=== PATIENT | male | born 1960 | race African-American/Black ===

== ENCOUNTER 2020-07-31 20:10 | Inpatient (IN) | payer OTHER ==
[2020-07-31 20:34] VITALS: BMI 25.0
--- NOTE | 2020-07-31 20:56 | BHS.RME ---
Substance Use & Tx History - Substance Use History Alcohol Substance amount: 3 pints Frequency of use: Daily Substance route: Oral Date of Last Use: 07/31/20 (Started at age 15.) Cocaine-Crack Substance amount: $60 Frequency of use: Daily Substance route: Smoking Date of Last Use: 07/31/20 (Started at age 31) Heroin Substance amount: 7-8 bags Frequency of use: Daily Substance route: Inhalation (ex: sniffing or snorting) Date of Last Use: 07/31/20 (Started at age 15) Methadone Substance amount: 15 - 20 mg Frequency of use: Less than 3 times per week Substance route: Oral Date of Last Use: 07/29/20 (Illicit use began at age 51) Xanax Substance amount: 1 stck Frequency of use: Less than 3 times per week Substance route: Oral Date of Last Use: 07/29/20 (Started using at age 58) Nicotine Substance amount: 10 Frequency of use: Daily Substance route: Inhalation (ex: sniffing or snorting) Date of Last Use: 07/31/20 (Started at age 13.) - Last Treatment Date of last treatment: 3 weeks ago Treatment type: Substance Use Disorder ([facility]) Where was last treatment: Detox Physical/Psych/Mental Status - Behavior General Behavior: Increased activity (restlessness, agitation) Eye Contact: Decreased - Cooperativeness Cooperativeness: Cooperative - Thinking Thought Processes: Goal Directed Thought content: Future oriented - Physical Health Problems Is patient presently having any pain?: Yes (Foot pain from caluses) Does patient presently have any injuries (include location): No Does patient currently have a fever: No COWS - Scale Resting Pulse: 0= [place] 80 or Below Sweatin=Flushed/Facial Moisture Restless Observation: 1= Difficult to Sit Still Pupil Size: 2= Moderately Dilated (Pupils = 4 mm) Bone or Joint Aches: 0= None Runny Nose/ Eye Tearin= Nasal Congestion GI Upset > 30mins: 0= None Tremor Observation: 2= Slight Tremor Visible Yawning Observation: 1= 1-2x During Session Anxiety or Irritability: 1=Feels Anxious/Irritable Goose Flesh Skin: 0=Smooth Skin COWS Score: 10 CIWA Nausea/Vomitin-No Nausea/No Vomiting Muscle Tremors: 3 Anxiety: 3 Agitation: 2 Paroxysmal Sweats: 3 (Increased facial moisture) Orientation: 0-Oriented Tacttile Disturbances: 0-None Auditory Disturbances: 0-None Visual Disturbances: 2-Mild Sensitivity Headache: 0-None Present CIWA-Ar Total Score: 13
--- NOTE | 2020-07-31 21:23 | HP ---
COWS - Scale Resting Pulse: 0= [place] 80 or Below Sweatin=Flushed/Facial Moisture Restless Observation: 1= Difficult to Sit Still Pupil Size: 2= Moderately Dilated (Pupils = 4 mm) Bone or Joint Aches: 0= None Runny Nose/ Eye Tearin= Nasal Congestion GI Upset > 30mins: 0= None Tremor Observation: 2= Slight Tremor Visible Yawning Observation: 1= 1-2x During Session Anxiety or Irritability: 1=Feels Anxious/Irritable Goose Flesh Skin: 0=Smooth Skin COWS Score: 10 CIWA Score Nausea/Vomitin-No Nausea/No Vomiting Muscle Tremors: 3 Anxiety: 3 Agitation: 2 Paroxysmal Sweats: 3 (Increased facial moisture) Orientation: 0-Oriented Tacttile Disturbances: 0-None Auditory Disturbances: 0-None Visual Disturbances: 2-Mild Sensitivity Headache: 0-None Present CIWA-Ar Total Score: 13 - Admission Criteria [facility]AS Guidelines: Admission for Medically Managed Detox: Requires at least one of the followin. CIWA greater than 12 2. Seizures within the past 24 hours 3. Delirium tremens within the past 24 hours 4. Hallucinations within the past 24 hours 5. Acute intervention needed for co occurring medical disorder 6. Acute intervention needed for co occurring psychiatric disorder 7. Severe withdrawal that cannot be handled at a lower level of care (continued vomiting, continued diarrhea, abnormal vital signs) requiring intravenous medication and/or fluids 8. Patient presents the following: CIWA greater than 12 Admission Criteria Met: Admission criteria met Admission ROS [facility] Chief Complaint: I'm here to get clean from drugs. Allergies/Adverse Reactions: Allergies Allergy/AdvReac Type Severity Reaction Status Date / Time No Known Allergies Allergy Verified 07/31/20 21:10 History of Present Illness: 60 you presents w/ alcohol and opioid withdrawal seeking detox. States was in [facility] about 4 weeks ago and relapsed immediately upon discharge. States I need to keep trying. PATIENT W/ HR: 42 ON AUSCULTATION AND ALSO ON EKG. DENIES CHEST PAIN/SOB. NO EDEMA. SEND TO ED FOR EVALUATION W/ COPY OF EKG (FOR CLEARANCE FOR ADMISSION.) REPORT GIVEN TO DR. TORRES IN [facility] ED. EMERY: 0.0 UTox: + TORY/FEN/MOP/MTD/BZO Substance Use History Alcohol Substance amount: 3 pints Frequency of use: Daily Substance route: Oral Date of Last Use: 07/31/20 (Started at age 15.) Cocaine-Crack Substance amount: $60 Frequency of use: Daily Substance route: Smoking Date of Last Use: 07/31/20 (Started at age 31) Heroin Substance amount: 7-8 bags Frequency of use: Daily Substance route: Inhalation(ex: sniffing or snorting) Date of Last Use: 07/31/20 (Started at age 15) Methadone (illicit) Substance amount: 20 mg Frequency of use: Less than 3 times per week Substance route: Oral Date of Last Use: 07/29/20 (Illicit use began at age 51) XanaX Substance amount: 1 stick Frequency of use: Less than 3 times per week Substance route: Oral Date of Last Use: 07/29/20 (Started using at age 58) Nicotine Substance amount: 10 Frequency of use: Daily Substance route: Inhalation (ex: sniffing or snorting) Date of Last Use: 07/31/20 (Started at age 13.) PMHx: Slow heart rate, sores on feet MHHx: Bipolar/depression. States on medications. Denies thoughts of harm to self or others SHx: Homeless. Patient Name: Mendez Pickering Date: 1960 Address: [address] [place] [address] Sex: Male Rx Written Rx Dispensed Drug Quantity Days Supply Prescriber Name Payment Method Dispenser 01/21/2020 01/21/2020 buprenorphine-naloxone 4-1 mg sl film 60 30 Mashajean mariekh, Joannad Medicaid [facility] Exam Limitations: No Limitations - Ebola screening Have you traveled outside of the country in the last 21 days: No Have you had contact with anyone from an Ebola affected area: No Have you been sick,other than usual withdrawal symptoms: No Do you have a fever: No - Review of Systems Constitutional: Chills EENT: reports: Blurred Vision, Nose Congestion Respiratory: reports: No Symptoms reported Cardiac: reports: Irregular Heart Rate (Hx slow heart beat) GI: reports: No Symptoms Reported : reports: No Symptoms Reported Musculoskeletal: reports: No Symptoms Reported Integumentary: reports: Lesions (bottom both feet sores, calluses) Neuro: reports: Tremors Endocrine: reports: Increased Thirst Hematology: reports: No Symptoms Reported Psychiatric: reports: Mood/Affect Appropiate, Orientated x3, Agitated, Anxious, Depressed (Denies S/) Patient History - PPD History Previous Implant?: Yes Documented Results: Negative w/o proof Implanted On Prior [facility] Admission?: No PPD to be Administered?: Yes - Smoking Cessation Smoking history: Current every day smoker Have you smoked in the past 12 months: Yes Aproximately how many cigarettes per day: 10 Hx Chewing Tobacco Use: No Initiated information on smoking cessation: Yes 'Breaking Loose' booklet given: 07/31/20 - Substance & Tx. History Hx Alcohol Use: Yes Hx Substance Use: Yes Substance Use Type: Alcohol, Cocaine, Heroin, Opiates, Tranquilizers (Xanax) Hx Substance Use Treatment: Yes (detox, rehab) Admission Physical Exam BHS - Vital Signs Vital Signs: Vital Signs - 24 hr 07/31/20 20:33 Temperature 97.3 F L Pulse Rate 44 L Respiratory 12 Rate Blood Pressure 124/68 - Physical General Appearance: Yes: Nourished, Mild Distress, Tremorous, Irritable, Sweating (Increased facial moisture), Anxious HEENTM: Yes: EOMI, Hearing grossly Normal, Normocephalic, Normal Voice, FROYLAN, Pharynx Normal Respiratory: Yes: Lungs Clear, Normal Breath Sounds, No Respiratory Distress Neck: Yes: No masses,lesions,Nodules, Supple Breast: Yes: Breast Exam Deferred Cardiology: Yes: Bradycardia (HR: 42/44), Irregular Abdominal: Yes: Non Tender, Flat, Soft, Increased Bowel Sounds Genitourinary: Yes: Within Normal Limits Back: Yes: Normal Inspection Musculoskeletal: Yes: full range of Motion Extremities: Yes: Normal Capillary Refill, Tremors Neurological: Yes: Fully Oriented, Alert, Motor Strength 5/5 Integumentary: Yes: Normal Color, Dry, Warm, Other (cracked skin feet and between toes w/ increased moisture and tenderness. (L) foot w/ 15 mm circular lesion, w/o) Lymphatic: Yes: Within Normal Limits - Diagnostic (1) Alcohol dependence with withdrawal, uncomplicated Current Visit: Yes Status: Acute (2) Opioid dependence with withdrawal Current Visit: Yes Status: Acute (3) Sedative, hypnotic or anxiolytic dependence with withdrawal, uncomplicated Current Visit: Yes Status: Acute (4) Bradycardia Current Visit: Yes Status: Chronic Comment: PATIENT STATES HAS HX (5) Tinea pedis Current Visit: Yes Status: Chronic Qualifiers: Laterality: bilateral Qualified Code(s): B35.3 - Tinea pedis (6) Cocaine dependence, uncomplicated Current Visit: Yes Status: Chronic (7) Nicotine dependence, unspecified, uncomplicated Current Visit: Yes Status: Chronic Qualifiers: Nicotine product type: cigarettes Qualified Code(s): F17.210 - Nicotine dependence, cigarettes, uncomplicated Cleared for Admission BHS - Detox or Rehab [facility] Level of Care: Medically Managed Detox Regimen/Protocol: Methadone/Librium Claeared for Rehab Admission: No Breathalyzer - Breathalyzer Breathalyzer: 0 Urine Drug Screen - Test Device Lot number: [id number] Expiration date: 06/03/22 - Control Is test valid?: Yes - Results Drug screen NEGATIVE: No Urine drug screen results: TORY-Cocaine, FEN-Fentanyl, MOP-Opiates, MTD- Methadone, BZO-Benzodiazepines Inpatient Rehab Admission - Rehab Decision to Admit Inpatient rehab admission?: No
--- NOTE | 2020-08-01 00:39 | PN ---
[facility] Progress Note Note: Patient came back from ER via ambulance. He was sent to ER for cardiac evaluation due to bradycardia and abnormal EKG (Sinus bradycardia, T wave abnormality, consider lateral Ischemia). At ER his EKG at 22:22 indicates sinus bradycardia at 39 bpm. normal intervals. no mejia or depressions. flat t wave III. twi V4-v5. Patient was cleared and sent back to continue detox. Patient denies chest pain, palpitation, nausea or vomiting at this time. Patient's heart rate remains bradycardic. Will hold order for Methadone and Librium for now as per discussion with Pharmacy. Floor provider to reevaluate and order Methadone and Librium. Vital Signs Temperature 97.3 F L 07/31/20 20:33 Pulse Rate 44 L 07/31/20 20:33 Respiratory Rate 12 07/31/20 20:33 Blood Pressure 124/68 07/31/20 20:33 O2 Sat by Pulse Oximetry (%) Action: Monitor heart rate Continue detox
[2020-08-01] MEDS ORDERED: ACETAMINOPHEN 325 MG TABLET (FP) PO PRN ×2 (00:42)
[2020-08-01] MEDS ORDERED: MAGNESIUM CITRATE 300 ML BOTTLE PO PRN (00:42)
[2020-08-01] MEDS ORDERED: ONDANSETRON *ODT* 4 MG TABLET SL PRN (00:42)
[2020-08-01] MEDS ORDERED: BISMUTH SUBSALICYLATE 524 MG/30 ML UD PO PRN (00:42)
[2020-08-01] MEDS ORDERED: METHOCARBAMOL 500 MG TABLET PO PRN (00:42)
[2020-08-01] MEDS ORDERED: MAGNESIUM HYDROX 2400MG/30ML ORAL SUSPENSION 30 ML CUP PO PRN (00:42)
[2020-08-01] MEDS ORDERED: MENTHOL/PHENOL 1 EACH UD MM PRN (00:42)
[2020-08-01] MEDS ORDERED: MAG HYDROX/AL HYDROX/SIMETH 30 ML UNIT-DOSE CUP PO PRN (00:42)
[2020-08-01] MEDS ORDERED: IBUPROFEN 400 MG TABLET (FP) PO PRN (00:42)
[2020-08-01] MEDS ORDERED: NICOTINE POLACRILEX 2 MG GUM BUC PRN (00:42)
[2020-08-01] MEDS ORDERED: METHADONE HCL 10 MG TABLET (FOR DETOX USE ONLY) PO ONE (09:19)
--- NOTE | 2020-08-01 09:31 | PN ---
BHS COWS - Scale Resting Pulse: 0= [place] 80 or Below Sweatin= Chills/Flushing Restless Observation: 0= Sits Still Pupil Size: 1= Pupils >than Normal Bone or Joint Aches: 4=Acute Joint/Muscle Pain Runny Nose/ Eye Tearin= Nasal Congestion GI Upset > 30mins: 2= Nausea/Diarrhea Tremor Observation of Outstretched Hands: 2= Slight Tremor Visible Yawning Observation: 2= >3x During Session Anxiety or Irritability: 2=Irritable/Anxious Goose Flesh Skin: 0=Smooth Skin COWS Score: 15 BHS Progress Note (SOAP) Subjective: alert,irritable,anxious,interrupted sleep,pain in the body,joint,body,no chest pain,no sob,no dizziness Objective: 08/01/20 09:28 Vital Signs Temperature 97.1 F L 08/01/20 08:43 Pulse Rate 47 L 08/01/20 08:43 Respiratory Rate 18 08/01/20 08:43 Blood Pressure 154/77 08/01/20 08:43 O2 Sat by Pulse Oximetry (%) 96 08/01/20 08:43 Assessment: 08/01/20 09:28 withdrawal symptom 08/01/20 09:28 patient stated he is active in running always has slow heart rate,was told by his primary care physician 08/01/20 09:31 no chest pain,no shortness of breath,no dizziness 08/01/20 09:31 stated he is using heroin daily 7 to 8 bags inhale drink only occasionally Plan: to start methadone detox,close monitoring
[2020-08-01] MEDS: NICOTINE 14 MG/24 HOURS TOPICAL PATCH TD SCH (09:50)
[2020-08-01] MEDS: PRENATAL VITAMINS W/ FOLIC ACID TABLET (FP) PO SCH (09:50)
--- NOTE | 2020-08-01 10:24 | EKG ---
Test Reason : Blood Pressure : / mmHG Vent. Rate : 042 BPM Atrial Rate : 042 BPM P-R Int : 156 ms QRS Dur : 088 ms QT Int : 478 ms P-R-T Axes : 011 018 -32 degrees QTc Int : 399 ms MARKED SINUS BRADYCARDIA T WAVE ABNORMALITY, CONSIDER ANTERIOR ISCHEMIA CLINICAL CORRELATION IS RECOMMENDED ABNORMAL ECG NO PREVIOUS ECGS AVAILABLE Confirmed by GODWIN CHRISTIANSEN MD ([id number]) on 08/01/2020 10:23:54 AM Referred By: Confirmed By:GODWIN CHRISTIANSEN MD
--- NOTE | 2020-08-01 12:00 | CONSULT ---
[facility] Psychiatric Consult - Data Date of interview: 08/01/20 Admission source: [facility] Identifying data: First visit to [facility] and admission to [address] [place] [address] for this 60 y/o AA male self-referred for detoxification treatment. [facility]A issues : xanax, heroin, cocaine, alcohol, nicotine. Patient is single, a father of one, homeless, unemployed and supported on welfare. Substance Abuse History: Discussed with the patient. ISAURA profile as follows : Alcohol. Substance amount: 3 pints Frequency of use: Daily Substance route: Oral Date of Last Use: 07/31/20 (Started at age 15.). Cocaine-Crack. Substance amount: $60 Frequency of use: Daily Substance route: Smoking Date of Last Use: 07/31/20 (Started at age 31). Heroin. Substance amount: 7-8 bags Frequency of use: Daily Substance route: Inhalation(ex: sniffing or snorting) Date of Last Use: 07/31/20 (Started at age 15). Methadone (illicit). Substance amount: 20 mg Frequency of use: Less than 3 times per week Substance route: Oral Date of Last Use: 07/29/20 (Illicit use began at age 51). XanaX. Substance amount: 1 stick Frequency of use: Less than 3 times per week Substance route: Oral Date of Last Use: 07/29/20 (Started using at age 58). Nicotine. Substance amount: 10 Frequency of use: Daily Substance route: Inhalation (ex: sniffing or snorting) Date of Last Use: 07/31/20 (Started at age 13.). Smoking Cessation. Smoking history: Current every day smoker. Have you smoked in the past 12 months: Yes. Aproximately how many cigarettes per day: 10. Hx Chewing Tobacco Use: No. Initiated information on smoking cessation: Yes. 'Breaking Loose' booklet given: 07/31/20. - Substance & Tx. History. Hx Alcohol Use: Yes. Hx Substance Use: Yes. Substance Use Type: Alcohol, Cocaine, Heroin, Opiates, Tranquilizers (Xanax). Hx Substance Use Treatment: Yes (detox, rehab). History of multiple [facility]A treatment failures. Medical History: Patient endorses good general health. Marked sinus bradycardia on current EKG. Psychiatric History: Patient denies history of psychiatric hospitalizations. He indicates past treatment with zoloft + seroquel. Mr Pickering reports that he has been diagnosed with Bipolar Disorder. He was affiliated with [facility] in [place], [place]. Dropped out of psychiatric OPD care about 3-4 years ago. Patient states that he usually get scripts for psychotropic medications from [facility] treatment centers (detox/rehab). Has not taken medications for past 2-3 weeks with the exception of suboxone. No history of suicide attempts. Physical/Sexual Abuse/Trauma History: Patient denies. Additional Comment: Urine drug screen results: TORY-Cocaine, FEN-Fentanyl, MOP- Opiates, MTD-Methadone, BZO-Benzodiazepines. Noted. Mental Status Exam - Mental Status Exam Alert and Oriented to: Time, Place, Person Cognitive Function: Good Patient Appearance: Well Groomed Mood: Withdrawn, Hopeful Affect: Mood Congruent, Constricted Patient Behavior: Fatigued, Appropriate, Cooperative Speech Pattern: Clear, Appropriate Voice Loudness: Normal Thought Process: Intact, Goal Oriented Thought Disorder: Not Present Hallucinations: Denies Suicidal Ideation: Denies Homicidal Ideation: Denies Insight/Judgement: Poor Sleep: Poorly, Difficulty falling asleep Gait/Station: Normal Psychiatric Findings - Problem List ([place] 1, 2,3) (1) Alcohol dependence with withdrawal, uncomplicated Current Visit: Yes Status: Acute (2) Opioid dependence with withdrawal Current Visit: Yes Status: Acute (3) Sedative, hypnotic or anxiolytic dependence with withdrawal, uncomplicated Current Visit: Yes Status: Acute (4) Cocaine dependence, uncomplicated Current Visit: Yes Status: Chronic (5) Nicotine dependence, unspecified, uncomplicated Current Visit: Yes Status: Chronic Qualifiers: Nicotine product type: cigarettes Qualified Code(s): F17.210 - Nicotine dependence, cigarettes, uncomplicated (6) Substance induced mood disorder Current Visit: Yes Status: Chronic (7) History of depression Current Visit: Yes Status: Chronic (8) Insomnia Current Visit: Yes Status: Chronic (9) Non-compliance Current Visit: Yes Status: Chronic Comment: Non adherence to psychiatric OPD care. - Initial Treatment Plan Initial Treatment Plan: Psychoeducation. Sleep hygiene. Detoxification. Observation. Seroquel and sertraline held until further orders (due to bradycardia).
[2020-08-01] MEDS: cloNIDine HCL 0.1 MG TABLET PO PRN (22:18)
[2020-08-01] MEDS: THIAMINE HCL 100 MG TABLET (FP) PO SCH (22:18)
[2020-08-01] MEDS: MELATONIN 5 MG TABLETS PO SCH (22:18)
[2020-08-02] MEDS ORDERED: METHADONE HCL 5 MG TABLET (FOR DETOX USE ONLY) ONE (09:18)
[2020-08-02] MEDS ORDERED: METHADONE HCL 10 MG TABLET (FOR DETOX USE ONLY) ONE (09:18)
[2020-08-02] MEDS ORDERED: METHADONE (DETOX) 20 MG, METHADONE (DETOX) 5 MG PO ONE (10:00)
[2020-08-02] MEDS: NICOTINE 14 MG/24 HOURS TOPICAL PATCH TD SCH (10:08)
[2020-08-02] MEDS: PRENATAL VITAMINS W/ FOLIC ACID TABLET (FP) PO SCH (10:08)
[2020-08-02] MEDS: cloNIDine HCL 0.1 MG TABLET PO PRN ×2 (10:10→22:18)
--- NOTE | 2020-08-02 10:42 | PN ---
BHS COWS - Scale Resting Pulse: 0= [place] 80 or Below Sweatin= Chills/Flushing Restless Observation: 1= Difficult to Sit Still Pupil Size: 0= Normal to Room Light Bone or Joint Aches: 2= Severe Diffuse Aches Runny Nose/ Eye Tearin= None GI Upset > 30mins: 0= None Tremor Observation of Outstretched Hands: 2= Slight Tremor Visible Yawning Observation: 1= 1-2x During Session Anxiety or Irritability: 2=Irritable/Anxious Goose Flesh Skin: 0=Smooth Skin COWS Score: 9 BHS Progress Note (SOAP) Subjective: c/o anxiety, chills, muscle aches, shakes, and irritability. Objective: 08/02/20 10:40 Vital Signs 08/02/20 09:00 Temperature 98.2 F Pulse Rate 55 L Respiratory 18 Rate Blood Pressure 155/89 Assessment: 08/02/20 10:41 AOX3, in no acute respiratory distress. Full ROM, ambulating in the unit. Withdrawal symptoms. Plan: continue detox.
[2020-08-02] MEDS: THIAMINE HCL 100 MG TABLET (FP) PO SCH (22:17)
[2020-08-02] MEDS: MELATONIN 5 MG TABLETS PO SCH (22:17)
[2020-08-03] MEDS ORDERED: METHADONE HCL 10 MG TABLET (FOR DETOX USE ONLY) PO ONE (10:00)
--- NOTE | 2020-08-03 10:02 | PN ---
[facility] CIWA - CIWA Score Nausea/Vomitin-No Nausea/No Vomiting Muscle Tremors: 1-None Visible, but [place] Anxiety: 2 Agitation: 1-Slight > Activity Paroxysmal Sweats: 1-Minimal Palms Moist Orientation: 0-Oriented Tacttile Disturbances: 0-None Auditory Disturbances: 0-None Visual Disturbances: 1-Very Mild Sensitivity Headache: 1-Very Mild CIWA-Ar Total Score: 7 BHS COWS - Scale Resting Pulse: 0= LA 80 or Below Sweatin= Chills/Flushing Restless Observation: 0= Sits Still Pupil Size: 1= Pupils >than Normal Bone or Joint Aches: 1= Mild Discomfort Runny Nose/ Eye Tearin= Nasal Congestion GI Upset > 30mins: 1= Stomach Cramp Tremor Observation of Outstretched Hands: 1= Tremor [place], Not Seen Yawning Observation: 0= None Anxiety or Irritability: 1=Feels Anxious/Irritable Goose Flesh Skin: 0=Smooth Skin COWS Score: 7 S Progress Note (SOAP) Subjective: 60 years old male was admitted on 07/31/20 for alcohol benzo opiate withdrawal sx management treating with clonidine prn and methadone detox regiments received clonidine sent to ER for bradycardia return to detox continue treatment mr roberts is alert oriented s 3 skin warm brisk capillary refilled >2 seconds ambulating steady gaits tolerated food well Objective: 08/03/20 10:08 Vital Signs - 24 hr 08/02/20 08/02/20 08/03/20 12:50 21:01 09:14 Temperature 98.2 F 97.1 F L 98.2 F Pulse Rate 43 L 51 L 42 L Respiratory 18 18 18 Rate Blood Pressure 127/71 165/79 125/71 O2 Sat by Pulse 98 Oximetry (%) Laboratory Tests 08/01/20 08/01/20 01:15 07:35 Syphilis Serology Non-reactive COVID-19 (MARIS) Not detected ER 08/01/10 for bradycardia 08/03/20 10:09 vistaril initiated for anxiety Assessment: 08/03/20 10:09 alcohol benzo opiate withdrawal Plan: clonidine prn methadone detox regiment vistaril for anxiety initiated
[2020-08-03] MEDS ORDERED: hydrOXYzine PAMOATE 25 MG CAPSULE (FP) PO PRN (10:05)
[2020-08-03] MEDS: NICOTINE 14 MG/24 HOURS TOPICAL PATCH TD SCH (10:15)
[2020-08-03] MEDS: PRENATAL VITAMINS W/ FOLIC ACID TABLET (FP) PO SCH (10:15)
[2020-08-03] MEDS: hydrOXYzine PAMOATE 25 MG CAPSULE (FP) PO SCH ×3 (10:53→22:32)
[2020-08-03] MEDS: MELATONIN 5 MG TABLETS PO SCH (22:32)
[2020-08-03] MEDS: THIAMINE HCL 100 MG TABLET (FP) PO SCH (22:32)
[2020-08-03] MEDS: cloNIDine HCL 0.1 MG TABLET PO PRN (22:32)
[2020-08-04] MEDS: hydrOXYzine PAMOATE 25 MG CAPSULE (FP) PO SCH ×4 (06:15→22:15)
[2020-08-04] MEDS ORDERED: METHADONE HCL 10 MG TABLET (FOR DETOX USE ONLY) ONE (08:53)
[2020-08-04] MEDS ORDERED: METHADONE HCL 5 MG TABLET (FOR DETOX USE ONLY) ONE (08:53)
--- NOTE | 2020-08-04 09:03 | PN ---
BHS COWS - Scale Resting Pulse: 0= ID 80 or Below Sweatin= No chills or Flushing Restless Observation: 0= Sits Still Pupil Size: 0= Normal to Room Light Bone or Joint Aches: 1= Mild Discomfort Runny Nose/ Eye Tearin= Nasal Congestion GI Upset > 30mins: 1= Stomach Cramp Tremor Observation of Outstretched Hands: 2= Slight Tremor Visible Yawning Observation: 1= 1-2x During Session Anxiety or Irritability: 2=Irritable/Anxious Goose Flesh Skin: 0=Smooth Skin COWS Score: 8 BHS Progress Note (SOAP) Subjective: alert,irritable,anxious,pain in the body and back,aching pain Objective: 08/04/20 13:13 Vital Signs Temperature 98.4 F 08/04/20 09:12 Pulse Rate 50 L 08/04/20 09:12 Respiratory Rate 18 08/04/20 09:12 Blood Pressure 107/62 08/04/20 09:12 O2 Sat by Pulse Oximetry (%) 100 08/03/20 20:51 Assessment: 08/04/20 13:13 withdrawal symptom Plan: continue detox methadone regimen
[2020-08-04] MEDS ORDERED: METHADONE (DETOX) 10 MG, METHADONE (DETOX) 5 MG PO ONE (10:00)
[2020-08-04] MEDS: PRENATAL VITAMINS W/ FOLIC ACID TABLET (FP) PO SCH (10:14)
[2020-08-04] MEDS: NICOTINE 14 MG/24 HOURS TOPICAL PATCH TD SCH (10:16)
[2020-08-04] MEDS: MELATONIN 5 MG TABLETS PO SCH (22:15)
[2020-08-04] MEDS: THIAMINE HCL 100 MG TABLET (FP) PO SCH (22:15)
[2020-08-05] MEDS: hydrOXYzine PAMOATE 25 MG CAPSULE (FP) PO SCH ×4 (05:14→22:08)
--- NOTE | 2020-08-05 09:44 | PN ---
BHS COWS - Scale Resting Pulse: 0= ID 80 or Below Sweatin= No chills or Flushing Restless Observation: 0= Sits Still Pupil Size: 0= Normal to Room Light Bone or Joint Aches: 1= Mild Discomfort Runny Nose/ Eye Tearin= Nasal Congestion GI Upset > 30mins: 1= Stomach Cramp Tremor Observation of Outstretched Hands: 1= Tremor [place], Not Seen Yawning Observation: 1= 1-2x During Session Anxiety or Irritability: 2=Irritable/Anxious Goose Flesh Skin: 0=Smooth Skin COWS Score: 7 BHS Progress Note (SOAP) Subjective: alert,irritable,anxious,interrupted sleep,pain in the body Objective: 08/05/20 10:57 Vital Signs Temperature 98.6 F 08/05/20 09:15 Pulse Rate 55 L 08/05/20 09:15 Respiratory Rate 18 08/05/20 09:15 Blood Pressure 108/70 08/05/20 09:15 O2 Sat by Pulse Oximetry (%) 97 08/04/20 20:51 Assessment: 08/05/20 10:58 withdrawal symptom Plan: continue detox methadone regimen,discharge in am
[2020-08-05] MEDS: NICOTINE 14 MG/24 HOURS TOPICAL PATCH TD SCH (09:50)
[2020-08-05] MEDS: PRENATAL VITAMINS W/ FOLIC ACID TABLET (FP) PO SCH (09:51)
[2020-08-05] MEDS ORDERED: METHADONE HCL 10 MG TABLET (FOR DETOX USE ONLY) PO ONE (10:00)
[2020-08-05] MEDS: MELATONIN 5 MG TABLETS PO SCH (22:07)
[2020-08-05] MEDS: THIAMINE HCL 100 MG TABLET (FP) PO SCH (22:08)
[2020-08-06] MEDS ORDERED: METHADONE HCL 5 MG TABLET (FOR DETOX USE ONLY) PO ONE ×2 (06:00→09:15)
--- NOTE | 2020-08-06 07:54 | DS ---
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 and was told that he always has slow heart rate denied chest pain,denied shortness of breath and denied dizziness stable for discharge to rehab today as arrangement total time of discharge spending 35 minutes Pertinent Past History: bradycardia insomnia - Physical Exam Results Vital Signs: Vital Signs Temperature 97.3 F L 08/05/20 21:05 Pulse Rate 47 L 08/05/20 21:05 Respiratory Rate 19 08/05/20 21:05 Blood Pressure 108/59 L 08/05/20 21:05 O2 Sat by Pulse Oximetry (%) 96 08/05/20 21:05 Pertinent Admission Physical Exam Findings: withdrawal signs and symptom Laboratory Last Values Syphilis Serology Non-reactive (NONREACTIVE) 08/01/20 07:35 COVID-19 ([facility]) Not detected (Not Detected) 08/01/20 01:15 - Treatment Hospital Course: Detox Protocol Followed, Detoxed Safely, Responded well, Discharged Condition Good, Rehab Referral Accepted Patient has Accepted [facility] Referral [facility] - Medication Discharge Medications: Ambulatory Orders NK [No Known Home Medication] 08/01/20 - Diagnosis (1) Opioid dependence with withdrawal Current Visit: Yes Status: Acute (2) Cocaine dependence, uncomplicated Current Visit: Yes Status: Chronic (3) Bradycardia Current Visit: No Status: Chronic - AMA Did Patient Leave Against Medical Advice: No
--- NOTE | 2020-08-06 07:54 | PN ---
BHS COWS - Scale Resting Pulse: 0= AR 80 or Below Sweatin= No chills or Flushing Restless Observation: 0= Sits Still Pupil Size: 0= Normal to Room Light Bone or Joint Aches: 0= None Runny Nose/ Eye Tearin= None GI Upset > 30mins: 0= None Tremor Observation of Outstretched Hands: 0= None Yawning Observation: 0= None Anxiety or Irritability: 1=Feels Anxious/Irritable Goose Flesh Skin: 0=Smooth Skin COWS Score: 1 BHS Progress Note (SOAP) Subjective: alert,no complaint Objective: 08/06/20 11:52 Vital Signs Temperature 97.5 F L 08/06/20 08:45 Pulse Rate 54 L 08/06/20 08:45 Respiratory Rate 18 08/06/20 08:45 Blood Pressure 101/61 08/06/20 08:45 O2 Sat by Pulse Oximetry (%) 96 08/05/20 21:05 Assessment: 08/06/20 11:52 detox completed,no withdrawal symptom Plan: stable for discharge today,follow up with after care program as arrangement
[2020-08-06] MEDS: hydrOXYzine PAMOATE 25 MG CAPSULE (FP) PO SCH ×2 (08:15→09:29)
[2020-08-06] MEDS: NICOTINE 14 MG/24 HOURS TOPICAL PATCH TD SCH (09:28)
[2020-08-06] MEDS: PRENATAL VITAMINS W/ FOLIC ACID TABLET (FP) PO SCH (09:28)
[2020-08-06 09:38] VITALS: BP 101/61; PULSE 54; TEMP 97.5
== END 2020-08-06 11:31 | disposition other institution (70) | DRG 773 ==
LOC: YASAS 20:10 → Y3N 08-01 00:25
PROVIDERS: ADMIT Allergy & Immunology; ATTEND Allergy & Immunology
PROC: HZ2ZZZZ Detoxification Services for Substance Abuse Treatment (ICD-10-PCS; principal; 2020-08-01)
DX: F10.230 Alcohol dependence with withdrawal, uncomplicated (principal); F11.23 Opioid dependence with withdrawal; F13.230 Sedative, hypnotic or anxiolytic dependence with withdrawal, uncomplicated; F14.20 Cocaine dependence, uncomplicated; F17.210 Nicotine dependence, cigarettes, uncomplicated; F19.24 Other psychoactive substance dependence with psychoactive substance-induced mood disorder; F41.9 Anxiety disorder, unspecified; F32.9 Major depressive disorder, single episode, unspecified; G47.00 Insomnia, unspecified; R00.1 Bradycardia, unspecified; R94.31 Abnormal electrocardiogram [ECG] [EKG]; Z59.0 Homelessness; Z56.0 Unemployment, unspecified; Z91.19 Patient's noncompliance with other medical treatment and regimen
CPT/HCPCS: 36415; 86780; 93005; 93010; J0735; U0003

== ENCOUNTER 2020-07-31 22:16 | Emergency (ER) | payer OTHER ==
--- NOTE | 2020-07-31 22:29 | PDOC ---
History of Present Illness - General Stated Complaint: BRADYCARDIA Time Seen by Provider: 07/31/20 22:25 History Source: Patient Exam Limitations: No Limitations - History of Present Illness Initial Comments: 07/31/20 22:32 60y M with PMH of Heroin use, Alcohol use, Cocaine use, Depression/Bipolar presenting to the ER from [facility] for bradycardia in the 40s. Pt states he last used heroin (3 bags inhalation) at 6pm with 1/2pt vodka. He presented to [facility] for detox but was found to have bradycardia on ekg there. Pt was sent here for evaluation. Pt is denying chest pain, sob, back pain, lightheadedness, abdominal pain, n/v/d, fevers, chills. He states he was told that he has an "athlete's heart" and says his heart rate is usually slow. He is currently not on depression meds but denies si/hi, ah/vh. Past History - Medical History Allergies/Adverse Reactions: Allergies Allergy/AdvReac Type Severity Reaction Status Date / Time No Known Allergies Allergy Verified 07/31/20 21:10 - Psycho-Social/Smoking History Smoking History: Current every day smoker Have you smoked in the past 12 months: Yes Number of Cigarettes Smoked Daily: 10 'Breaking Loose' booklet given: 07/31/20 Review of Systems - Review of Systems Constitutional: No: Symptoms Reported HEENTM: No: Symptoms Reported Respiratory: No: Symptoms reported Cardiac (ROS): No: Symptoms Reported ABD/GI: No: Symptoms Reported : No: Symptoms Reported Musculoskeletal: No: Symptoms Reported Integumentary: No: Symptoms Reported Neurological: No: Symptoms reported *Physical Exam - Physical Exam General Appearance: Yes: Nourished, Appropriately Dressed. No: Apparent Distress HEENT: positive: EOMI, FROYLAN Neck: positive: Trachea midline, Supple Respiratory/Chest: positive: Lungs Clear, Normal Breath Sounds. negative: Rapid RR, Decreased Breath Sounds, Paradoxal Breathing, Crackles, Rales, Rhonchi, Stridor, Wheezing Cardiovascular: positive: Regular Rhythm, S1, S2, Bradycardia. negative: Edema, JVD, Murmur, Diastolic Murmur, Systolic Murmur, Irregularly Irregular Vascular Pulses: Dorsalis-Pedis (R): 2+, Doralis-Pedis (L): 2+ Gastrointestinal/Abdominal: positive: Normal Bowel Sounds, Soft. negative: Tender Musculoskeletal: positive: Normal Inspection. negative: CVA Tenderness Extremity: positive: Normal Capillary Refill. negative: Pedal Edema, Swelling, Calf Tenderness Integumentary: positive: Normal Color, Dry, Warm Neurologic: positive: manager commodities II-XII NML intact, Fully Oriented, Alert, Normal Mood/Affect, Normal Response, Motor Strength 5/5 Medical Decision Making - Medical Decision Making 07/31/20 22:52 60y m with pmh of polysubstance abuse presenting from [facility] for bradycardia. pt denies symptoms vitals: bradycardic, normotensive, satting well on ra. normal physical exam. ekg at [facility] 2020 today: sinus bradycardia at 42bpm. flat t waves diffusely. twi in V3-v5. . no mejia or depressions. ekg at 22:22: sinus bradycardia at 39 bpm. normal intervals. no mejia or depress ions. flat t wave III. twi V4-v5. pt not having any symptoms: chest pain, syncope, lightheadedness, sob. does not require labs at this time. pt endorses history of bradycardia. will dc back to [facility]. spoke to Mariah. 07/31/20 23:15 Discharge - Discharge Information Problems reviewed: Yes Clinical Impression/Diagnosis: Bradycardia Condition: Good Disposition: [facility] FACILITY - Admission No - Follow up/Referral - Patient Discharge Instructions Patient Printed Discharge Instructions: DI for Bradycardia Additional Instructions: You were seen in the ER today for a slow heart rate (bradycardia). Since you are not having any chest pain, difficulty breathing and since you are not lightheaded you do not need further work up. You may just have a slow heart rate. Come back to the ER if you have chest pain, have difficulty breathing, you pass out or if any new or concerning symptom develops. Thank you - Post Discharge Activity
[2020-07-31 22:31] VITALS: BP 153/77; BMI 25.0
--- NOTE | 2020-07-31 22:48 | PDOC ---
Attending Attestation - Resident Resident Name: Alda Mancini - ED Attending Attestation I have performed the following: I have examined & evaluated the patient, The case was reviewed & discussed with the resident, I agree w/resident's findings & plan, Exceptions are as noted - HPI HPI: 08/01/20 00:56 See resident HPI - Physicial Exam PE: 08/01/20 00:57 Agree with documented exam - Medical Decision Making 08/01/20 00:57 Sent for evaluation of bradycardia Asymptomatic, normotensive ekg sinus alta dc back to [facility] Discharge - Discharge Information Problems reviewed: Yes Clinical Impression/Diagnosis: Bradycardia Condition: Good Disposition: ALF FACILITY - Follow up/Referral - Patient Discharge Instructions Patient Printed Discharge Instructions: DI for Bradycardia Additional Instructions: You were seen in the ER today for a slow heart rate (bradycardia). Since you are not having any chest pain, difficulty breathing and since you are not lightheaded you do not need further work up. You may just have a slow heart rate. Come back to the ER if you have chest pain, have difficulty breathing, you pass out or if any new or concerning symptom develops. Thank you - Post Discharge Activity
[2020-07-31 23:53] VITALS: PULSE 42
[2020-08-01] MEDS ORDERED: ACETAMINOPHEN 325 MG TABLET (FP) PO PRN ×2 (00:20)
[2020-08-01] MEDS ORDERED: MAGNESIUM CITRATE 300 ML BOTTLE PO PRN (00:20)
[2020-08-01] MEDS ORDERED: MAG HYDROX/AL HYDROX/SIMETH 30 ML UNIT-DOSE CUP PO PRN (00:20)
[2020-08-01] MEDS ORDERED: IBUPROFEN 400 MG TABLET (FP) PO PRN (00:20)
[2020-08-01] MEDS ORDERED: BISMUTH SUBSALICYLATE 524 MG/30 ML UD PO PRN (00:20)
[2020-08-01] MEDS ORDERED: MAGNESIUM HYDROX 2400MG/30ML ORAL SUSPENSION 30 ML CUP PO PRN (00:20)
[2020-08-01] MEDS ORDERED: MENTHOL/PHENOL 1 EACH UD MM PRN (00:20)
[2020-08-01] MEDS ORDERED: ONDANSETRON *ODT* 4 MG TABLET SL PRN (00:20)
[2020-08-01] MEDS ORDERED: hydrOXYzine PAMOATE 25 MG CAPSULE (FP) PO PRN (00:20)
[2020-08-01] MEDS ORDERED: METHOCARBAMOL 500 MG TABLET PO PRN (00:20)
[2020-08-01] MEDS ORDERED: NICOTINE POLACRILEX 2 MG GUM BUC PRN (00:20)
[2020-08-01] MEDS ORDERED: NICOTINE 14 MG/24 HOURS TOPICAL PATCH TD SCH (10:00)
[2020-08-01] MEDS ORDERED: PRENATAL VITAMINS W/ FOLIC ACID TABLET (FP) PO SCH (10:00)
--- NOTE | 2020-08-01 10:32 | EKG ---
Test Reason : Blood Pressure : / mmHG Vent. Rate : 039 BPM Atrial Rate : 039 BPM P-R Int : 162 ms QRS Dur : 086 ms QT Int : 482 ms P-R-T Axes : 029 008 002 degrees QTc Int : 388 ms MARKED SINUS BRADYCARDIA NONSPECIFIC T WAVE ABNORMALITY ABNORMAL ECG Confirmed by GODWIN CHRISTIANSEN MD ([id number]) on 08/01/2020 10:32:01 AM Referred By: Confirmed By:GODWIN CHRISTIANSEN MD
[2020-08-01] MEDS ORDERED: MELATONIN 5 MG TABLETS PO SCH (22:00)
[2020-08-01] MEDS ORDERED: THIAMINE HCL 100 MG TABLET (FP) PO SCH (22:00)
== END 2020-07-31 23:56 ==
LOC: JER 22:16
DX: R00.1 Bradycardia, unspecified (principal)
CPT/HCPCS: 93005; 93010; 99284-25

== ENCOUNTER 2020-08-06 12:04 | Inpatient (IN) | payer OTHER ==
--- NOTE | 2020-08-06 12:39 | HP ---
[facility] Rehab Assess/Revision - Admission History Admitted to Rehab from: [address] Date of Admission to Rehab: 08/06/20 - Vital signs Vital Signs: Vital Signs Period Temp Pulse Resp BP Sys/David Pulse Ox Last 24 Hr 98.1 F 65 18 128/68 98 - Findings Detox History & Physical reviewed: Yes Concur with findings: Yes Comments/Additional Findings: Pt is a 60 y/o old male with a hx of ARSH- heroin,alcohol admitted to rehab this afternoon from [address] [place] [address] detox. Pt reports previous hx MMTP several years ago and got off. also reports hx of Suboxone, last in May 2020. Pt states might be interested to get back on Suboxone. PMHx:Hx of Bradycardia(see detox H/P); Dry skin, athletes' feet. Psych Hx:Depression( as per Dr. Villagran in Detox-" Observation. Seroquel and sertraline held until further orders (due to bradycardia"). Alert o x 3. nad. oob ambulating with steady gait. extremities:no edema. skin:warm,dry and intact. s/p detox. arsh. Increase po fluids. maintain safety. Pt will follow up with psych consult for re-evaluation of meds. Tinactin cream as directed. Eucerin cream daily hygiene-dry skin. aveeno soap daily Inpatient Rehab Admission - Rehab Decision to Admit Inpatient rehab admission?: Yes - Initial Determination Are CD services needed?: Yes Free of communicable disease: Yes Not in need of hospitalization: Yes - Rehab Admission Criteria Previous failed treatment: Yes Poor recovery environment: Yes Comorbidities: Yes Lacks judgement: Yes Patient is meeting Inpatient Rehab admission criteria:: Yes
--- OUTSIDE RECORDS SUMMARY | 2020-08-06 12:45 | XMS ---
:1960 Author Organization [facility] Support Name Relationship Address Phone UE Unavailable Unavailable Unavailable RONALD MARTINS MOTHER [address] [place] [address] RONALD MARTINS Mother [address] [place] [address] Re-disclosure Warning The records that you are about to access may contain information from federally- assisted alcohol or drug abuse programs. If such information is present, then the following federally mandated warning applies: This information has been disclosed to you from records protected by federal confidentiality rules (42 CFR part 2). The federal rules prohibit you from making any further disclosure of this information unless further disclosure is expressly permitted by the written consent of the person to whom it pertains or as otherwise permitted by 42 CFR part 2. A general authorization for the release of medical or other information is NOT sufficient for this purpose. The Federal rules restrict any use of the information to criminally investigate or prosecute any alcohol or drug abuse patient.The records that you are about to access may contain highly sensitive health information, the redisclosure of which is protected by Article 27-F of the [facility] Public Health law. If you continue you may haveaccess to information: Regarding HIV / AIDS; Provided by facilities licensed or operated by the [facility] Office of Mental Health; or Provided by the [facility] Office for People With Developmental Disabilities. If such information is present, then the following [facility] mandated warning applies: This information has been disclosed to you from confidential records which are protected by state law. State law prohibits you from making any further disclosure of this information without the specific written consent of the person to whom it pertains, or as otherwise permitted by law. Any unauthorized further disclosure in violation of state law may result in a fine or care home sentence or both. A general authorization for the release of medical or other information is NOT sufficient authorization for further disclosure. Insurance Providers Payer name Policy type Policy ID Covered Covered democrat's Policy P nhi / Coverage democrat ID relationship to Bee Inf ormation type bee HEALTH [id number] FIRST Results ID Date Data Source [id number] 08/01/2020 01:15:00 AM EDT [facility] Name Value Range Interpretation Description Data Sup porting Code Source(s) Document(s ) SARS [facility] coronavirus 2 RNA This lab was ordered by [facility] S[facility] Bill Inter and reported by [facility]. Procedure
[2020-08-06] MEDS ORDERED: guaiFENesin 200 MG/10 ML 10 ML UNIT-DOSE CUPS PO PRN (12:54)
[2020-08-06] MEDS ORDERED: MENTHOL/PHENOL 1 EACH UD MM PRN (12:54)
[2020-08-06] MEDS ORDERED: P-EPHED 60MG/TRIPROLIDI 2.5MG TABLET PO PRN (12:54)
[2020-08-06] MEDS ORDERED: IBUPROFEN 400 MG TABLET (FP) PO PRN (12:54)
[2020-08-06] MEDS ORDERED: MAGNESIUM CITRATE 300 ML BOTTLE PO PRN (12:54)
[2020-08-06] MEDS ORDERED: MAGNESIUM HYDROX 2400MG/30ML ORAL SUSPENSION 30 ML CUP PO PRN (12:54)
[2020-08-06] MEDS ORDERED: NICOTINE POLACRILEX 2 MG GUM BUC PRN (12:54)
[2020-08-06] MEDS ORDERED: LOPERAMIDE HCL 2 MG CAPSULE PO PRN (12:54)
[2020-08-06] MEDS ORDERED: MAG HYDROX/AL HYDROX/SIMETH 30 ML UNIT-DOSE CUP PO PRN (12:54)
[2020-08-06] MEDS ORDERED: ACETAMINOPHEN 325 MG TABLET (FP) PO PRN (12:54)
[2020-08-06] MEDS ORDERED: COLLOIDAL OATMEAL 1 BAR EACH TP PRN (15:15)
[2020-08-06] MEDS: hydrOXYzine PAMOATE 25 MG CAPSULE (FP) PO PRN ×2 (16:05→21:44)
[2020-08-06] MEDS: MINERAL OIL/PETROLAT/WATER TOPICAL CREAM 113 GM JAR TP SCH (16:07)
--- NOTE | 2020-08-06 16:23 | CONSULT ---
[facility] Psychiatric Consult - Data Date of interview: 08/06/20 Admission source: [facility] Identifying data: Patient is a 60 year old single black male, father of one, unemployed, homeless, and is financially supported with public assistance. This is one of multiple admissions for patient. Patient admitted to rehab for opiate and cocaine dependence. Substance Abuse History: Substance & Tx. History. Hx Alcohol Use: Yes. Hx Substance Use: Yes. Substance Use Type: Alcohol, Cocaine, Heroin, Opiates, Tranquilizers (Xanax). Hx Substance Use Treatment: Yes (detox, rehab) Medical History: Bradycardic Psychiatric History: Patient denies history of psychiatric hospitalization and suicide attempt. Patient's first psychiatric contact was approximately 3-4 years ago at [facility] in [place], [place]. Mr. Pickering states that he was diagnosed with bipolar disorder and treated with zoloft and seroquel. Mr. Pickering states that he most recently received zoloft (unsure of dose) + Seroquel 50mg daily + 100mg HS while at [facility] last week. Patient seen by Dr. Villagran while in detox and zoloft + seroquel was held due to bradycardia. Patient is totally lost in follow up care. At present patient is requesting to restart psychotropic medications. Physical/Sexual Abuse/Trauma History: denies. Mental Status Exam - Mental Status Exam Alert and Oriented to: Time, Place, Person Cognitive Function: Good Patient Appearance: Well Groomed Mood: Hopeful Affect: Appropriate Patient Behavior: Appropriate, Cooperative Speech Pattern: Appropriate Voice Loudness: Normal Thought Process: Goal Oriented Thought Disorder: Not Present Hallucinations: Denies Suicidal Ideation: Denies Homicidal Ideation: Denies Insight/Judgement: Poor Sleep: Poorly Appetite: Fair Muscle strength/Tone: Normal Gait/Station: Normal Psychiatric Findings - Problem List ([place] 1, 2,3) (1) Alcohol use disorder Current Visit: Yes Status: Acute (2) Cocaine dependence, uncomplicated Current Visit: Yes Status: Chronic (3) Sedative hypnotic or anxiolytic dependence Current Visit: Yes Status: Acute (4) Nicotine dependence, unspecified, uncomplicated Current Visit: Yes Status: Chronic Qualifiers: Nicotine product type: cigarettes Qualified Code(s): F17.210 - Nicotine dependence, cigarettes, uncomplicated (5) History of depression Current Visit: Yes Status: Chronic (6) Substance-induced sleep disorder Current Visit: Yes Status: Acute - Initial Treatment Plan Initial Treatment Plan: Psychoeducation provided. Detoxification in progress. Patient's most recent heart rate at 12:05 was 65. Will order Zoloft 50mg daily + Seroquel 25mg HS.
[2020-08-06] MEDS: THIAMINE HCL 100 MG TABLET (FP) PO SCH (21:44)
[2020-08-06] MEDS: MELATONIN 5 MG TABLETS PO SCH (21:44)
[2020-08-06] MEDS: TOLNAFTATE 1% CREAM 15 GM TUBE TP SCH (21:44)
[2020-08-06] MEDS: QUEtiapine FUMARATE 25 MG TABLET PO SCH (21:44)
[2020-08-07] MEDS: MINERAL OIL/PETROLAT/WATER TOPICAL CREAM 113 GM JAR TP SCH (10:40)
[2020-08-07] MEDS: SERTRALINE HCL 50 MG TABLET (FP) PO SCH (10:41)
[2020-08-07] MEDS: PRENATAL VITAMINS W/ FOLIC ACID TABLET (FP) PO SCH (10:41)
[2020-08-07] MEDS: hydrOXYzine PAMOATE 25 MG CAPSULE (FP) PO PRN ×3 (10:41→20:26)
[2020-08-07] MEDS: TOLNAFTATE 1% CREAM 15 GM TUBE TP SCH ×2 (11:00→21:28)
[2020-08-07] MEDS ORDERED: PNEUMOC 13-VAL CONJ-DIP CRM/PF 0.5 ML DISP.SYRIN IM ONE (12:00)
[2020-08-07] MEDS ORDERED: PNEUMOCOCCAL 23 VACCINE 0.5 ML VIAL IM ONE (12:00)
[2020-08-07] MEDS ORDERED: FLU VACCINE (FLULAVAL) PF 60 MCG/0.5 ML SYRINGE 2020-2021 IM ONE (12:00)
[2020-08-07] MEDS: MELATONIN 5 MG TABLETS PO SCH (21:28)
[2020-08-07] MEDS: QUEtiapine FUMARATE 25 MG TABLET PO SCH (21:28)
[2020-08-07] MEDS: THIAMINE HCL 100 MG TABLET (FP) PO SCH (21:28)
[2020-08-08] MEDS: hydrOXYzine PAMOATE 25 MG CAPSULE (FP) PO PRN ×2 (09:30→16:48)
[2020-08-08] MEDS: SERTRALINE HCL 50 MG TABLET (FP) PO SCH (09:30)
[2020-08-08] MEDS: TOLNAFTATE 1% CREAM 15 GM TUBE TP SCH ×2 (09:30→21:41)
[2020-08-08] MEDS: PRENATAL VITAMINS W/ FOLIC ACID TABLET (FP) PO SCH (09:30)
[2020-08-08] MEDS: MINERAL OIL/PETROLAT/WATER TOPICAL CREAM 113 GM JAR TP SCH (09:31)
[2020-08-08 10:33] LABS: ALBUMIN 3.4 g/dl (3.4-5.0); BILIRUBIN,TOTAL 0.3 mg/dL (0.2-1); BLOOD UREA NITROGEN 15.5 mg/dL (7-18); CALCIUM 8.9 mg/dL (8.5-10.1); CREATININE 0.9 mg/dL (0.55-1.3); POTASSIUM 4.2 mmol/L (3.5-5.1); TOT PROT 6.2 g/dl (6.4-8.2)
[2020-08-08 10:37] LABS: HEMATOCRIT 40.3 % (35.4-49); HEMOGLOBIN 13.3 GM/dL (11.7-16.9); MEAN CELL VOLUME 90.7 fl (80-96); MEAN PLT VOLUME 9.5 fl (7.5-11.1); PLATELET COUNT 161 K/MM3 (134-434); RBC 4.44 M/mm3 (4.00-5.60); WHITE BLOOD COUNT 4.5 K/mm3 (4.0-10.0)
[2020-08-08] MEDS: QUEtiapine FUMARATE 25 MG TABLET PO SCH (21:41)
[2020-08-08] MEDS: THIAMINE HCL 100 MG TABLET (FP) PO SCH (21:41)
[2020-08-08] MEDS: MELATONIN 5 MG TABLETS PO SCH (21:41)
[2020-08-09] MEDS: hydrOXYzine PAMOATE 25 MG CAPSULE (FP) PO PRN ×4 (00:39→19:43)
[2020-08-09] MEDS: TOLNAFTATE 1% CREAM 15 GM TUBE TP SCH ×2 (10:04→21:05)
[2020-08-09] MEDS: SERTRALINE HCL 50 MG TABLET (FP) PO SCH (10:04)
[2020-08-09] MEDS: PRENATAL VITAMINS W/ FOLIC ACID TABLET (FP) PO SCH (10:04)
[2020-08-09] MEDS: MINERAL OIL/PETROLAT/WATER TOPICAL CREAM 113 GM JAR TP SCH (10:05)
[2020-08-09] MEDS: QUEtiapine FUMARATE 25 MG TABLET PO SCH (21:04)
[2020-08-09] MEDS: MELATONIN 5 MG TABLETS PO SCH (21:05)
[2020-08-09] MEDS: THIAMINE HCL 100 MG TABLET (FP) PO SCH (21:05)
[2020-08-10] MEDS: hydrOXYzine PAMOATE 25 MG CAPSULE (FP) PO PRN ×3 (07:31→21:18)
[2020-08-10] MEDS: PRENATAL VITAMINS W/ FOLIC ACID TABLET (FP) PO SCH (10:09)
[2020-08-10] MEDS: SERTRALINE HCL 50 MG TABLET (FP) PO SCH (10:10)
[2020-08-10] MEDS: MINERAL OIL/PETROLAT/WATER TOPICAL CREAM 113 GM JAR TP SCH (10:10)
[2020-08-10] MEDS: TOLNAFTATE 1% CREAM 15 GM TUBE TP SCH ×2 (10:10→21:19)
[2020-08-10 10:44] LABS: URINE APPEARANCE Clear; URINE BILIRUBIN Negative (NEGATIVE); URINE COLOR Yellow; URINE GLUCOSE (UA) Negative (NEGATIVE); URINE KETONE Negative (NEGATIVE); URINE LEUK ESTERASE Negative (NEGATIVE); URINE NITRITE Negative (NEGATIVE); URINE PROTEIN Negative (NEGATIVE); URINE UROBILINOGEN 0.2 mg/dL (0.2-1.0)
[2020-08-10] MEDS: QUEtiapine FUMARATE 25 MG TABLET PO SCH (21:18)
[2020-08-10] MEDS: MELATONIN 5 MG TABLETS PO SCH (21:18)
[2020-08-10] MEDS: THIAMINE HCL 100 MG TABLET (FP) PO SCH (21:19)
[2020-08-11 07:57] VITALS: BP 128/76; PULSE 50; TEMP 97.5
[2020-08-11] MEDS: hydrOXYzine PAMOATE 25 MG CAPSULE (FP) PO PRN (08:55)
--- NOTE | 2020-08-11 10:09 | DS ---
[facility] Rehab Discharge Summary - [facility] Rehab Discharge Summary Admission Date: 08/06/20 Discharge Date: 08/11/20 - History Present History: Alcohol dependence, Cocaine dependence Pertinent Past History: Hx Bradycardia, Benign Tinea Pedis - Discharge Physical Exam Vital Signs: Vital Signs Temperature 97.5 F L 08/11/20 07:56 Pulse Rate 50 L 08/11/20 07:56 Respiratory Rate 16 08/11/20 07:56 Blood Pressure 128/76 08/11/20 07:56 O2 Sat by Pulse Oximetry (%) 97 08/11/20 07:56 General;WDWN male, Alert o x 3, nad,denies s/h/i Cardiac:s1 s2,rrr lungs:ctab abdomen:soft,flat, +bs,nt,nd MSK/Skin:Active FROM, all limbs; oob ambulating with steady gait; no edema, skin dry, warm and intact. Pertinent Admission Physical Exam Findings: Tinea pedis Laboratory Tests 08/08/20 08/08/20 08/08/20 06:50 06:50 06:50 WBC 4.5 RBC 4.44 Hgb 13.3 Hct 40.3 MCV 90.7 MCH 30.0 MCHC 33.0 RDW 14.0 Plt Count 161 MPV 9.5 Sodium 142 Potassium 4.2 Chloride 108 H Carbon Dioxide 28 Anion Gap 6 L BUN 15.5 Creatinine 0.9 Est GFR (CKD-EPI)AfAm 106.46 Est GFR (CKD-EPI)NonAf 91.86 Random Glucose 91 Calcium 8.9 Total Bilirubin 0.3 AST 12 L ALT 31 Alkaline Phosphatase 71 Total Protein 6.2 L Albumin 3.4 Urine Color Urine Appearance Urine pH Ur Specific Oakes Urine Protein Urine Glucose (UA) Urine Ketones Urine Blood Urine Nitrite Urine Bilirubin Urine Urobilinogen Ur Leukocyte Esterase HIV Ag/Ab Combo Qual Negative 08/10/20 08:20 WBC RBC Hgb Hct MCV MCH MCHC RDW Plt Count MPV Sodium Potassium Chloride Carbon Dioxide Anion Gap BUN Creatinine Est GFR (CKD-EPI)AfAm Est GFR (CKD-EPI)NonAf Random Glucose Calcium Total Bilirubin AST ALT Alkaline Phosphatase Total Protein Albumin Urine Color Yellow Urine Appearance Clear Urine pH 6.0 Ur Specific [place] 1.025 Urine Protein Negative Urine Glucose (UA) Negative Urine Ketones Negative Urine Blood Negative Urine Nitrite Negative Urine Bilirubin Negative Urine Urobilinogen 0.2 Ur Leukocyte Esterase Negative HIV Ag/Ab Combo Qual - Treatment Discharge Condition: Discharge condition good, Rehabilitated safely, Outpatient referral accepted Hospital Course: Pt is a 60 y/o male with a ISAURA admitted to rehab after detox tx and requesting early discharge today. CD aftercare referral accepted to [facility] - Medication Discharge Medications: Ambulatory Orders Naloxone HCl [Narcan] 4 mg NS ONCE #1 spray 08/11/20 - Medication-Assisted Treatment (MAT) Medication-Assisted Treatment (MAT): No - Discharge Instructions Diet, activity, other medical instructions: Diet:Regular Activity: oob ad jean marie Other medical instructions:follow up with primary care provider as needed. - Diagnosis (1) Alcohol use disorder Status: Chronic (2) Cocaine dependence, uncomplicated Status: Chronic (3) Tinea pedis Status: Chronic Qualifiers: Laterality: bilateral Qualified Code(s): B35.3 - Tinea pedis (4) Opioid use disorder Status: Chronic - Follow-up Referral Minutes to complete discharge: 25 - AMA Did Patient Leave Against Medical Advice: No
[2020-08-11] MEDS: SERTRALINE HCL 50 MG TABLET (FP) PO SCH (10:23)
[2020-08-11] MEDS: MINERAL OIL/PETROLAT/WATER TOPICAL CREAM 113 GM JAR TP SCH (10:23)
[2020-08-11] MEDS: PRENATAL VITAMINS W/ FOLIC ACID TABLET (FP) PO SCH (10:23)
[2020-08-11] MEDS: TOLNAFTATE 1% CREAM 15 GM TUBE TP SCH (10:23)
== END 2020-08-11 10:45 | disposition home or self-care (01) | DRG 772 ==
LOC: YASAS 12:04 → Y5N 12:06
PROVIDERS: ADMIT Allergy & Immunology; ATTEND Allergy & Immunology
PROC: HZ42ZZZ Group Counseling for Substance Abuse Treatment, Cognitive-Behavioral (ICD-10-PCS; principal; 2020-08-06)
DX: F11.20 Opioid dependence, uncomplicated (principal); F10.20 Alcohol dependence, uncomplicated; F14.20 Cocaine dependence, uncomplicated; F13.20 Sedative, hypnotic or anxiolytic dependence, uncomplicated; F17.210 Nicotine dependence, cigarettes, uncomplicated; F19.282 Other psychoactive substance dependence with psychoactive substance-induced sleep disorder; F32.9 Major depressive disorder, single episode, unspecified; R00.1 Bradycardia, unspecified; B35.3 Tinea pedis; Z56.0 Unemployment, unspecified; Z59.0 Homelessness
CPT/HCPCS: 36415; 80053; 81003; 85027; 87389; 90732; G0009; Q2036

== ENCOUNTER 2020-10-13 16:04 | Inpatient (IN) | payer OTHER ==
[2020-10-13 22:26] VITALS: BMI 24.9
[2020-10-13] MEDS ORDERED: IBUPROFEN 400 MG TABLET (FP) PO PRN (22:43)
[2020-10-13] MEDS ORDERED: cloNIDine HCL 0.1 MG TABLET PO PRN (22:43)
[2020-10-13] MEDS ORDERED: NALOXONE HCL 0.4 MG/ML VIAL IM PRN (22:43)
[2020-10-13] MEDS ORDERED: DICYCLOMINE HCL 10 MG CAPSULE PO PRN (22:43)
[2020-10-13] MEDS ORDERED: MENTHOL/PHENOL 1 EACH UD MM PRN (22:43)
[2020-10-13] MEDS ORDERED: guaiFENesin 200 MG/10 ML 10 ML UNIT-DOSE CUPS PO PRN (22:43)
[2020-10-13] MEDS ORDERED: MAGNESIUM CITRATE 300 ML BOTTLE PO PRN (22:43)
[2020-10-13] MEDS ORDERED: BISMUTH SUBSALICYLATE 524 MG/30 ML UD PO PRN (22:43)
[2020-10-13] MEDS ORDERED: P-EPHED 60MG/TRIPROLIDI 2.5MG TABLET PO PRN (22:43)
[2020-10-13] MEDS ORDERED: MAGNESIUM HYDROX 2400MG/30ML ORAL SUSPENSION 30 ML CUP PO PRN (22:43)
[2020-10-13] MEDS ORDERED: ACETAMINOPHEN 325 MG TABLET (FP) PO PRN ×2 (22:43)
[2020-10-13] MEDS ORDERED: ONDANSETRON *ODT* 4 MG TABLET SL PRN (22:43)
[2020-10-13] MEDS ORDERED: METHOCARBAMOL 500 MG TABLET PO PRN (22:43)
[2020-10-13] MEDS ORDERED: NICOTINE POLACRILEX 2 MG GUM BUC PRN (22:43)
[2020-10-13] MEDS ORDERED: MAG HYDROX/AL HYDROX/SIMETH 30 ML UNIT-DOSE CUP PO PRN (22:43)
[2020-10-13] MEDS ORDERED: METHADONE HCL 10 MG TABLET (FOR DETOX USE ONLY) PO ONE (23:30)
[2020-10-14] MEDS: diazePAM 5 MG TABLET PO SCH ×5 (00:46→22:03)
[2020-10-14] MEDS ORDERED: METHADONE HCL 5 MG TABLET (FOR DETOX USE ONLY) ONE (08:35)
[2020-10-14] MEDS ORDERED: METHADONE HCL 10 MG TABLET (FOR DETOX USE ONLY) ONE (08:35)
[2020-10-14] MEDS ORDERED: METHADONE (DETOX) 20 MG, METHADONE (DETOX) 5 MG PO ONE (10:00)
[2020-10-14] MEDS: PRENATAL VITAMINS W/ FOLIC ACID TABLET (FP) PO SCH (10:26)
[2020-10-14] MEDS: NICOTINE 21 MG/24 HOURS TOPICAL PATCH TD SCH (10:26)
[2020-10-14 10:49] LABS: HEMATOCRIT 39.2 % (35.4-49); HEMOGLOBIN 12.7 GM/dL (11.7-16.9); MCHC 32.4 g/dl (32.0-35.9); MEAN CELL VOLUME 92.5 fl (80-96); MEAN PLT VOLUME 9.1 fl (7.5-11.1); PLATELET COUNT 183 K/MM3 (134-434); RBC 4.24 M/mm3 (4.00-5.60); RDW 14.7 % (11.9-15.9); WHITE BLOOD COUNT 3.9 K/mm3 (4.0-10.0)
[2020-10-14 11:34] LABS: CALCIUM 8.4 mg/dL (8.5-10.1)
[2020-10-14 11:35] LABS: ALBUMIN 2.8 g/dl (3.4-5.0); BLOOD UREA NITROGEN 14.9 mg/dL (7-18)
[2020-10-14 11:38] LABS: CREATININE 0.9 mg/dL (0.55-1.3)
[2020-10-14 11:40] LABS: TOT PROT 5.4 g/dl (6.4-8.2)
[2020-10-14 11:41] LABS: BILIRUBIN,TOTAL 1.3 mg/dL (0.2-1)
[2020-10-14] MEDS: THIAMINE HCL 100 MG TABLET (FP) PO SCH (22:02)
[2020-10-14] MEDS: MELATONIN 5 MG TABLETS PO SCH (22:03)
[2020-10-15] MEDS: diazePAM 5 MG TABLET PO SCH ×3 (06:41→22:13)
[2020-10-15] MEDS ORDERED: METHADONE HCL 10 MG TABLET (FOR DETOX USE ONLY) PO ONE (10:00)
[2020-10-15] MEDS: PRENATAL VITAMINS W/ FOLIC ACID TABLET (FP) PO SCH (10:04)
[2020-10-15] MEDS: NICOTINE 21 MG/24 HOURS TOPICAL PATCH TD SCH (10:04)
[2020-10-15] MEDS: SERTRALINE HCL 50 MG TABLET (FP) PO SCH (10:04)
[2020-10-15 17:12] LABS: URINE APPEARANCE CLEAR; URINE BILIRUBIN NEGATIVE (NEGATIVE); URINE COLOR YELLOW; URINE GLUCOSE (UA) NEGATIVE (NEGATIVE); URINE KETONE NEGATIVE (NEGATIVE); URINE LEUK ESTERASE NEGATIVE (NEGATIVE); URINE NITRITE NEGATIVE (NEGATIVE); URINE PROTEIN NEGATIVE (NEGATIVE); URINE UROBILINOGEN 0.2 mg/dL (0.2-1.0)
[2020-10-15] MEDS: diazePAM 5 MG TABLET PO PRN (17:40)
[2020-10-15] MEDS: THIAMINE HCL 100 MG TABLET (FP) PO SCH (22:13)
[2020-10-15] MEDS: MELATONIN 5 MG TABLETS PO SCH (22:13)
[2020-10-16] MEDS: diazePAM 5 MG TABLET PO SCH ×2 (06:09→17:38)
[2020-10-16] MEDS ORDERED: METHADONE HCL 5 MG TABLET (FOR DETOX USE ONLY) ONE (08:28)
[2020-10-16] MEDS ORDERED: METHADONE HCL 10 MG TABLET (FOR DETOX USE ONLY) ONE (08:28)
[2020-10-16] MEDS ORDERED: METHADONE (DETOX) 10 MG, METHADONE (DETOX) 5 MG PO ONE (10:00)
[2020-10-16] MEDS: PRENATAL VITAMINS W/ FOLIC ACID TABLET (FP) PO SCH (10:27)
[2020-10-16] MEDS: NICOTINE 21 MG/24 HOURS TOPICAL PATCH TD SCH (10:27)
[2020-10-16] MEDS: SERTRALINE HCL 50 MG TABLET (FP) PO SCH (10:27)
[2020-10-16] MEDS: THIAMINE HCL 100 MG TABLET (FP) PO SCH (22:17)
[2020-10-16] MEDS: MELATONIN 5 MG TABLETS PO SCH (22:20)
[2020-10-16] MEDS: diazePAM 5 MG TABLET PO PRN (22:21)
[2020-10-17] MEDS ORDERED: diazePAM 5 MG TABLET PO ONE (06:00)
[2020-10-17] MEDS ORDERED: METHADONE HCL 10 MG TABLET (FOR DETOX USE ONLY) PO ONE (10:00)
[2020-10-17] MEDS: SERTRALINE HCL 50 MG TABLET (FP) PO SCH (10:18)
[2020-10-17] MEDS: PRENATAL VITAMINS W/ FOLIC ACID TABLET (FP) PO SCH (10:19)
[2020-10-17] MEDS: NICOTINE 21 MG/24 HOURS TOPICAL PATCH TD SCH (10:20)
[2020-10-17] MEDS: THIAMINE HCL 100 MG TABLET (FP) PO SCH (22:08)
[2020-10-17] MEDS: MELATONIN 5 MG TABLETS PO SCH (22:08)
[2020-10-18] MEDS ORDERED: METHADONE HCL 5 MG TABLET (FOR DETOX USE ONLY) PO ONE (06:00)
[2020-10-18 09:09] VITALS: BP 151/73; PULSE 50; TEMP 98
[2020-10-18] MEDS: SERTRALINE HCL 50 MG TABLET (FP) PO SCH (10:37)
[2020-10-18] MEDS: PRENATAL VITAMINS W/ FOLIC ACID TABLET (FP) PO SCH (10:38)
[2020-10-18] MEDS: NICOTINE 21 MG/24 HOURS TOPICAL PATCH TD SCH (10:41)
== END 2020-10-18 13:10 | disposition other institution (70) | DRG 773 ==
LOC: YASAS 16:04 → Y6N 22:17
PROVIDERS: ADMIT Allergy & Immunology; ATTEND Allergy & Immunology
PROC: HZ2ZZZZ Detoxification Services for Substance Abuse Treatment (ICD-10-PCS; principal; 2020-10-13)
DX: F11.23 Opioid dependence with withdrawal (principal); F10.230 Alcohol dependence with withdrawal, uncomplicated; F14.20 Cocaine dependence, uncomplicated; F17.210 Nicotine dependence, cigarettes, uncomplicated; F19.24 Other psychoactive substance dependence with psychoactive substance-induced mood disorder; F19.282 Other psychoactive substance dependence with psychoactive substance-induced sleep disorder; F42.4 Excoriation (skin-picking) disorder; R00.1 Bradycardia, unspecified; R01.1 Cardiac murmur, unspecified; Z91.19 Patient's noncompliance with other medical treatment and regimen; Z59.0 Homelessness
CPT/HCPCS: 36415; 80053; 81003; 85027; 86780; 93005; 93010; C9803; U0003

== ENCOUNTER 2020-10-18 13:23 | Inpatient (IN) | payer OTHER ==
[2020-10-18] MEDS ORDERED: IBUPROFEN 400 MG TABLET (FP) PO PRN (14:03)
[2020-10-18] MEDS ORDERED: P-EPHED 60MG/TRIPROLIDI 2.5MG TABLET PO PRN (14:03)
[2020-10-18] MEDS ORDERED: MAGNESIUM HYDROX 2400MG/30ML ORAL SUSPENSION 30 ML CUP PO PRN (14:03)
[2020-10-18] MEDS ORDERED: NICOTINE POLACRILEX 2 MG GUM BUC PRN (14:03)
[2020-10-18] MEDS ORDERED: MAGNESIUM CITRATE 300 ML BOTTLE PO PRN (14:03)
[2020-10-18] MEDS ORDERED: MENTHOL/PHENOL 1 EACH UD MM PRN (14:03)
[2020-10-18] MEDS ORDERED: LOPERAMIDE HCL 2 MG CAPSULE PO PRN (14:03)
[2020-10-18] MEDS ORDERED: ACETAMINOPHEN 325 MG TABLET (FP) PO PRN (14:03)
[2020-10-18] MEDS ORDERED: MAG HYDROX/AL HYDROX/SIMETH 30 ML UNIT-DOSE CUP PO PRN (14:03)
[2020-10-18] MEDS ORDERED: guaiFENesin 200 MG/10 ML 10 ML UNIT-DOSE CUPS PO PRN (14:03)
[2020-10-18] MEDS: hydrOXYzine PAMOATE 25 MG CAPSULE (FP) PO PRN (21:17)
[2020-10-18] MEDS: THIAMINE HCL 100 MG TABLET (FP) PO SCH (21:17)
[2020-10-18] MEDS: MELATONIN 5 MG TABLETS PO SCH (21:17)
[2020-10-19 07:08] VITALS: BP 128/76; PULSE 50; TEMP 97.9
[2020-10-19] MEDS: PRENATAL VITAMINS W/ FOLIC ACID TABLET (FP) PO SCH (10:08)
[2020-10-19] MEDS: NICOTINE 21 MG/24 HOURS TOPICAL PATCH TD SCH (10:08)
[2020-10-19] MEDS: hydrOXYzine PAMOATE 25 MG CAPSULE (FP) PO PRN ×2 (10:09→21:41)
[2020-10-19] MEDS ORDERED: SERTRALINE HCL 50 MG TABLET (FP) PO ONE (10:50)
[2020-10-19] MEDS: SERTRALINE HCL 50 MG TABLET (FP) PO SCH (13:47)
[2020-10-19] MEDS: MELATONIN 5 MG TABLETS PO SCH (21:41)
[2020-10-19] MEDS: THIAMINE HCL 100 MG TABLET (FP) PO SCH (21:41)
[2020-10-20] MEDS: PRENATAL VITAMINS W/ FOLIC ACID TABLET (FP) PO SCH (09:49)
[2020-10-20] MEDS: NICOTINE 21 MG/24 HOURS TOPICAL PATCH TD SCH (09:49)
[2020-10-20] MEDS: SERTRALINE HCL 50 MG TABLET (FP) PO SCH (09:49)
== END 2020-10-20 13:45 | disposition left against medical advice (07) | DRG 770 ==
LOC: YASAS 13:23 → Y5N 13:24
PROVIDERS: ADMIT Allergy & Immunology; ATTEND Allergy & Immunology
PROC: HZ42ZZZ Group Counseling for Substance Abuse Treatment, Cognitive-Behavioral (ICD-10-PCS; principal; 2020-10-18)
DX: F11.20 Opioid dependence, uncomplicated (principal); F10.20 Alcohol dependence, uncomplicated; F14.20 Cocaine dependence, uncomplicated; F17.210 Nicotine dependence, cigarettes, uncomplicated; F19.24 Other psychoactive substance dependence with psychoactive substance-induced mood disorder; F19.282 Other psychoactive substance dependence with psychoactive substance-induced sleep disorder; F42.4 Excoriation (skin-picking) disorder; R00.1 Bradycardia, unspecified; R01.1 Cardiac murmur, unspecified; Z91.19 Patient's noncompliance with other medical treatment and regimen; Z59.0 Homelessness

== ENCOUNTER 2021-12-25 13:53 | Inpatient (IN) | payer OTHER ==
[2021-12-25] MEDS ORDERED: IBUPROFEN 400 MG TABLET (FP) PO PRN (15:10)
[2021-12-25] MEDS ORDERED: MENTHOL/PHENOL 1 EACH UD MM PRN (15:10)
[2021-12-25] MEDS ORDERED: methaDONE HCL 10 MG TABLET (FOR DETOX USE ONLY) PO ONE (15:10)
[2021-12-25] MEDS ORDERED: LOPERAMIDE HCL 2 MG CAPSULE PO PRN (15:10)
[2021-12-25] MEDS ORDERED: MAGNESIUM CITRATE 300 ML BOTTLE PO PRN (15:10)
[2021-12-25] MEDS ORDERED: ACETAMINOPHEN 325 MG TABLET (FP) PO PRN ×2 (15:10)
[2021-12-25] MEDS ORDERED: BISMUTH SUBSALICYLATE 524 MG/30 ML PO PRN (15:10)
[2021-12-25] MEDS ORDERED: MAG HYDROX/AL HYDROX/SIMETH 30 ML UNIT-DOSE CUP PO PRN (15:10)
[2021-12-25] MEDS ORDERED: NICOTINE 10 MG CARTRIDGE (INHALER) IH PRN (15:10)
[2021-12-25] MEDS ORDERED: ONDANSETRON *ODT* 4 MG TABLET SL PRN (15:10)
[2021-12-25] MEDS ORDERED: MAGNESIUM HYDROX 2400MG/30ML ORAL SUSPENSION 30 ML CUP PO PRN (15:10)
[2021-12-25 15:43] VITALS: BMI 24.7
[2021-12-25] MEDS ORDERED: MELATONIN 5 MG TABLETS PO PRN (17:42)
[2021-12-25] MEDS ORDERED: hydrOXYzine PAMOATE 25 MG CAPSULE (FP) PO SCH (18:00)
[2021-12-25] MEDS ORDERED: MELATONIN 5 MG TABLETS PO SCH (22:00)
[2021-12-25] MEDS: THIAMINE HCL 100 MG TABLET (FP) PO SCH (22:47)
[2021-12-26] MEDS ORDERED: AMMONIUM LACTATE 12% LOTION 225 GM BOTTLE TP PRN (01:29)
[2021-12-26] MEDS ORDERED: methaDONE HCL 10 MG TABLET (FOR DETOX USE ONLY) ONE (10:02)
[2021-12-26] MEDS: METHOCARBAMOL 500 MG TABLET PO PRN ×2 (10:21→22:45)
[2021-12-26] MEDS: PRENATAL VITAMINS W/ FOLIC ACID TABLET (FP) PO SCH (10:21)
[2021-12-26] MEDS: TOLNAFTATE 1% CREAM 15 GM TUBE TP SCH ×2 (10:21→22:43)
[2021-12-26] MEDS: cloNIDine HCL 0.1 MG TABLET PO PRN ×2 (10:21→22:46)
[2021-12-26] MEDS ORDERED: QUEtiapine FUMARATE 50 MG TABLET PO SCH (22:00)
[2021-12-26] MEDS: THIAMINE HCL 100 MG TABLET (FP) PO SCH (22:45)
[2021-12-27] MEDS ORDERED: methaDONE HCL 10 MG TABLET (FOR DETOX USE ONLY) PO ONE (10:00)
[2021-12-27] MEDS: TOLNAFTATE 1% CREAM 15 GM TUBE TP SCH ×2 (10:30→22:58)
[2021-12-27] MEDS: SERTRALINE HCL 50 MG TABLET (FP) PO SCH (10:30)
[2021-12-27] MEDS: PRENATAL VITAMINS W/ FOLIC ACID TABLET (FP) PO SCH (10:30)
[2021-12-27] MEDS: METHOCARBAMOL 500 MG TABLET PO PRN ×2 (10:31→19:48)
[2021-12-27] MEDS: cloNIDine HCL 0.1 MG TABLET PO PRN (19:48)
[2021-12-27] MEDS: THIAMINE HCL 100 MG TABLET (FP) PO SCH (22:58)
[2021-12-28] MEDS ORDERED: methaDONE HCL 10 MG TABLET (FOR DETOX USE ONLY) ONE (09:19)
[2021-12-28] MEDS: PRENATAL VITAMINS W/ FOLIC ACID TABLET (FP) PO SCH (10:13)
[2021-12-28] MEDS: TOLNAFTATE 1% CREAM 15 GM TUBE TP SCH ×2 (10:13→21:37)
[2021-12-28] MEDS: METHOCARBAMOL 500 MG TABLET PO PRN ×2 (10:13→21:34)
[2021-12-28] MEDS: SERTRALINE HCL 50 MG TABLET (FP) PO SCH (10:13)
[2021-12-28 10:54] LABS: HEMATOCRIT 41.9 % (35.4-49); HEMOGLOBIN 13.8 GM/dL (11.7-16.9); MCH 30.2 pg (25.7-33.7); MCHC 32.9 g/dl (32.0-35.9); MEAN CELL VOLUME 91.9 fl (80-96); PLATELET COUNT 225 10^3/uL (134-434); RBC 4.56 M/mm3 (4.00-5.60); RDW 13.8 % (11.9-15.9); WHITE BLOOD COUNT 5.4 K/mm3 (4.0-10.0)
[2021-12-28 10:57] LABS: ALBUMIN 3.3 g/dl (3.4-5.0); BLOOD UREA NITROGEN 13.2 mg/dL (7-18); CALCIUM 9.2 mg/dL (8.5-10.1)
[2021-12-28 11:01] LABS: BILIRUBIN,TOTAL 0.8 mg/dL (0.2-1); TOT PROT 6.2 g/dl (6.4-8.2)
[2021-12-28] MEDS: hydrOXYzine PAMOATE 25 MG CAPSULE (FP) PO PRN ×2 (14:59→21:34)
[2021-12-28 15:07] LABS: SARS-CoV-2 NAA Not Detected (Not Detected)
[2021-12-28] MEDS: THIAMINE HCL 100 MG TABLET (FP) PO SCH (21:35)
[2021-12-29] MEDS ORDERED: methaDONE HCL 10 MG TABLET (FOR DETOX USE ONLY) PO ONE (10:00)
[2021-12-29] MEDS: TOLNAFTATE 1% CREAM 15 GM TUBE TP SCH (10:15)
[2021-12-29] MEDS: PRENATAL VITAMINS W/ FOLIC ACID TABLET (FP) PO SCH (10:15)
[2021-12-29] MEDS: SERTRALINE HCL 50 MG TABLET (FP) PO SCH (10:15)
[2021-12-29] MEDS: hydrOXYzine PAMOATE 25 MG CAPSULE (FP) PO PRN (10:16)
[2021-12-29 13:02] VITALS: BP 115/60; PULSE 59; TEMP 97.7
== END 2021-12-29 15:46 | disposition home or self-care (01) | DRG 773 ==
LOC: YASAS 13:53 → Y3N 16:59
PROVIDERS: ADMIT Allergy & Immunology; ATTEND Allergy & Immunology
PROC: HZ2ZZZZ Detoxification Services for Substance Abuse Treatment (ICD-10-PCS; principal; 2021-12-25)
DX: F11.23 Opioid dependence with withdrawal (principal); F10.20 Alcohol dependence, uncomplicated; F14.20 Cocaine dependence, uncomplicated; F17.210 Nicotine dependence, cigarettes, uncomplicated; F19.282 Other psychoactive substance dependence with psychoactive substance-induced sleep disorder; F19.24 Other psychoactive substance dependence with psychoactive substance-induced mood disorder; F31.9 Bipolar disorder, unspecified; H55.00 Unspecified nystagmus; B35.3 Tinea pedis; R00.1 Bradycardia, unspecified; Z86.59 Personal history of other mental and behavioral disorders; Z59.00 Homelessness unspecified; Z56.0 Unemployment, unspecified
CPT/HCPCS: 36415; 80053; 85027; 86780; 93005; 93010; C9803; J0735; U0003; U0005